=== PATIENT | male | born 1940 | race Caucasian/White ===

== ENCOUNTER → 2019-04-03 | Outpatient (CLI) | payer OTHER ==
[~2019-04-03] MED LIST: AVAPRO300 MG PO; NORCO 5-325 TA1 EACH PO; PHENERGAN 25 MG25 M1 PO
== END ==
LOC: CAT 13:54
DX: Z13.6 Encounter for screening for cardiovascular disorders (principal); E78.00 Pure hypercholesterolemia, unspecified; I25.10 Atherosclerotic heart disease of native coronary artery without angina pectoris

== ENCOUNTER → 2019-12-21 | Outpatient (CLI) | payer OTHER ==
[~2019-12-21] MED LIST changes: +ADULT ASPIRIN R81 MG PO; +BENICAR HCT 401 EACH PO; +CHOLECALCIFEROL1 GM PO; +COQ1050 MG PO; +LIVALO4 MG PO; +METFORMIN HCL500 M3 PO; +METOPROLOL SUCC25 M1 PO; +NORVASC5 M1 PO; +OMEPRAZOLE 20 M20 M1 PO; +PHYTONADIONE5 MG PO; +VITAMIN C100 MG PO
== END ==
LOC: SJCVCIMAG 07:43
PROVIDERS: ATTEND Internal Medicine Cardiovascular Disease
DX: I49.1 Atrial premature depolarization (principal); I25.119 Atherosclerotic heart disease of native coronary artery with unspecified angina pectoris; Z79.899 Other long term (current) drug therapy

== ENCOUNTER → 2020-01-07 | Outpatient (CLI) | payer OTHER ==
[~2020-01-07] VITALS: Ht 172.7 cm; Wt 97.5 kg
[2020-01-07 07:09] VITALS: BP 148/76
[2020-01-07 07:31] LABS: HEMATOCRIT 39.2 % (42.0-52.0); HEMOGLOBIN 13.4 gm/dL (14.0-18.0); MCH 31.2 pg (26.0-34.0); MCHC 34.1 g/dL (28.0-37.0); MCV 91.4 fL (80.0-100.0); RBC 4.29 mil/uL (4.50-6.00); RDW 13.7 % (10.5-14.5); WBC 7.8 thou/uL (4.0-11.0)
[2020-01-07 07:55] LABS: CALCIUM 8.8 mg/dL (8.5-10.1); CREATININE 1.5 mg/dL (0.7-1.3); POTASSIUM 3.8 mmol/L (3.5-5.1)
--- NOTE | 2020-01-07 09:20 | NUR ---
NOTIFIED SONI OF PT STATUS. SHE IS COMING AT [address] PRINGLE.
--- NOTE | 2020-01-08 09:08 | EKG ---
[facility] [place] [address] ELECTROCARDIOGRAM REPORT Name: HELEN AWAD Room #: REG [facility].#: [id number] Admission: 01/07/20 Attend Phys: Arturo Arreguin MD, Discharge: Date of : 44 Report #: [id number] THIS REPORT FOR: cc: Geno Cruz MD, Liliana E. MD Lundgren,Julito Sutherland MD [facility] ~ THIS REPORT FOR: //name// [facility] Test Date: 2020-01-07 Test Time: 07:24:31 Pat Name: HELEN AWAD Department: Room: Gender: Windows Systems Architect: STEFANIA : 1940 Requested By: Arturo Arreguin Order Number: [id number] MD: Julito Bacon Measurements Intervals [place] Rate: 50 P: 28 OK: 159 QRS: -11 QRSD: 92 T: 7 QT: 426 QTc: 389 Interpretive Statements Sinus bradycardia Otherwise normal tracing Compared to ECG 10/04/2012 16:03:15 No significant changes Electronically Signed On 01-08-2020 9:08:41 CDT by Julito Bacon [email or web address] <ELECTRONICALLY SIGNED> By: Julito Bacon MD, [facility] 01/08/20 0908 3 3 Julito Bacon MD, [facility] /EPI
--- NOTE | 2020-01-08 13:43 | CATHLAB ---
[facility] [place] [address] INVASIVE PROCEDURE REPORT Name: HELEN AWAD Room #: REG [facility] DavidNimesh#: [id number] Admission: 01/07/20 Attend Phys: Arturo Arreguin MD, Discharge: Date of : 44 Report #: [id number] THIS REPORT FOR: cc: Geno Cruz MD, Liliana E. MD Mancuso, Gerald M. MD [facility] ~ APPROVED REPORT Study performed: 01/07/2020 07:46:41 Patient Details Patient Status: Out-Patient Room #: The patient is a 79 year-old male Event Personnel Arturo Arreguin Flotation Operator, Atiya Chakraborty RN, Ann Gonzales RTR, Efrain Frank Sherra RTR Monitor Procedures Performed Art Access - R femoral artery* Left Heart Cath w/or w/o Coronaries [id number] [facility] Aortogram Abdominal Peripheral Angio [id number] [id number] Initial Mod Sed Same Phys/QHP Gr 468942 41431 Mod Sed Same Phys/QHP Ea 555267 Hemostasis w/ Mynx Indication Chest pain Procedure Narrative The Right Groin^ was infiltrated with 1% Lidocaine subcutaneous anesthesia. A PINNACLE 6FR Sheath #[id number] sheath was inserted into the RFA^. Coronary angiography was performed using coronary diagnostic catheters. The right coronary system was accessed and visualized with a JR4 catheter. The left coronary system was accessed and visualized with a JL4 catheter. The left ventricle was accessed and visualized with a PIGTAIL catheter. Left ventriculogram was performed in 30 degree projection. An aortogram of the abdominal aorta was performed. Closure device was deployed with a 6 Fr MYNXGRIP 6/7F #[id number]. The patient tolerated the procedure well and there were no complications associated with the procedure. There was no hematoma. Intraoperative Conscious Sedation Sedation start time: 824 Case end Time: 855 [facility] [place] [address] INVASIVE PROCEDURE REPORT Name: RITESHHELEN AJ Room #: [facility] [id number] Admission: 01/07/20 Attend Phys: Arturo Arreguin, Discharge: Date of : 44 Report #: [id number] Fentanyl 100 mcg Versed 2.0 mg Fluoro Time: 2.20 minutes Dose: DAP 8246.90 cGycm2 1018 mGy Contrast Type and Amount: Visipaque 95 ml Hemodynamics The aortic pressure is 167/63 mmHg with a mean of 56 mmHg. The left ventricular pressure is 140/2 mmHg with a mean of mmHg. The left ventricular end diastolic pressure is 23 mmHg. Conclusion 1. Normal left ventricular size and systolic function EF 50 to 55% #2 abdominal aortogram reveals moderate tortuosity but no significant aneurysm or stenosis. #3 left main with mild distal disease of 20 to 30% giving rise to LAD and circumflex #4 LAD proximal calcification is noted eccentric 60% lesion with mild distal disease. High rising diagonal branch moderately diseased throughout #5 circumflex OM moderate calcification heavily calcified tortuous then giving rise to a proximal OM lesion of 70 to 75% tortuosity and calcification would make this difficult there is a distal high-grade disease but this is very distal aspect of the OM branch. 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 Significant calcium and tortuosity would make these technically difficult to intervene on. Although these are not high-grade lesions moderate moderately severe proximal disease is noted. We will continue to treat medically Close follow-up will be obtained and this is been discussed in detail with patient and . <ELECTRONICALLY SIGNED> By: Arturo Arreguin MD, [facility] 01/08/20 134 134 41 Arturo Arreguin MD, FACC /INF
== END | disposition home or self-care (01) ==
LOC: CATH 06:38
PROVIDERS: ATTEND Internal Medicine Cardiovascular Disease
DX: R07.9 Chest pain, unspecified (principal); I25.10 Atherosclerotic heart disease of native coronary artery without angina pectoris; I10 Essential (primary) hypertension; E11.9 Type 2 diabetes mellitus without complications; E78.5 Hyperlipidemia, unspecified; E78.00 Pure hypercholesterolemia, unspecified; K21.9 Gastro-esophageal reflux disease without esophagitis; I48.92 Unspecified atrial flutter; Z98.890 Other specified postprocedural states; Z79.899 Other long term (current) drug therapy; Z88.0 Allergy status to penicillin; Z79.82 Long term (current) use of aspirin

== ENCOUNTER → 2020-07-13 | Outpatient (CLI) | payer OTHER | LOC: SJCVCIMAG 09:25 | PROVIDERS: ATTEND Internal Medicine Cardiovascular Disease | DX: I65.23 Occlusion and stenosis of bilateral carotid arteries (principal); I25.10 Atherosclerotic heart disease of native coronary artery without angina pectoris; I48.92 Unspecified atrial flutter ==

== ENCOUNTER → 2020-08-04 | Outpatient (CLI) | payer OTHER | LOC: SJCVCIMAG 07:52 | PROVIDERS: ATTEND Internal Medicine Cardiovascular Disease | DX: N28.1 Cyst of kidney, acquired (principal) ==